=== PATIENT | male | born 1950 | race Caucasian/White ===

== ENCOUNTER 2023-05-30 06:07 | Day surgery (SDC) | payer MEDICARE ==
[2023-05-25 11:31] VITALS: BMI 31.1
[2023-05-25 13:21] LABS: Mean Corpuscular HGB CONC 34.1 g/dL (32.0-36.0); Mean Corpuscular Hemoglobin 32.6 pg (27.0-33.0); Mean Corpuscular Volume 95.7 fl (81.2-95.1); Mean Platelet Volume 9.7 fl (7.4-10.4); Platelet Count 174 10x3/uL (150-450); RBC Distribution Width 13.1 % (11.5-14.5); White Blood Cell (WBC) Count 5.6 10x3/uL (3.5-10.5)
[2023-05-25 14:07] LABS: Anion Gap 14 mmol/L (10-20); BUN (Urea Nitrogen) 17 mg/dL (8.4-25.7); Calc. Creatinine Clearance 125 mL/min (70-130); Calcium 9.4 mg/dL (7.8-10.44); Carbon Dioxide 26 mmol/L (23-31); Chloride 102 mmol/L (98-107); Estimated GFR 95; Glucose 99 mg/dL (83-110); Potassium 3.7 mmol/L (3.5-5.1); Sodium 138 mmol/L (136-145)
[2023-05-30] MEDS ORDERED: Heparin 25,000 units/D5W 500 ML ONE (06:46)
[2023-05-30] MEDS ORDERED: Heparin 10,000 UNITS/ 10 ML VIAL ONE (06:46)
[2023-05-30] MEDS ORDERED: Protamine Sulfate 50 MG/5 ML VIAL ONE (06:46)
[2023-05-30] MEDS ORDERED: fentaNYL 50 mcg/mL 1 mL Vial ONE ×2 (07:17→09:08)
[2023-05-30] MEDS ORDERED: PROPOFOL 200 MG/20 ML VIAL ONE (07:52)
[2023-05-30] MEDS ORDERED: Dexamethasone 20 MG/5 ML VIAL ONE (07:52)
[2023-05-30] MEDS ORDERED: Ondansetron PF 4 MG/2 ML Vial ONE (07:52)
[2023-05-30] MEDS ORDERED: PHENYLEPHRINE-NS 100 MCG/ML 10 ML SYRINGE ONE (07:52)
[2023-05-30] MEDS ORDERED: Lidocaine 1% PF 5 ML VIAL ONE (07:52)
[2023-05-30] MEDS ORDERED: Rocuronium Bromide 10 MG/ML (10ML VIAL) ONE (07:52)
[2023-05-30] MEDS ORDERED: ePHEDrine Sulfate 50 MG/10 ML VIAL ONE (07:52)
[2023-05-30] MEDS ORDERED: SUGAMMADEX SODIUM 200 MG/2 ML VIAL ONE (09:03)
== END 2023-05-30 11:30 | disposition home or self-care (01) ==
LOC: SDC 06:07
PROVIDERS: ATTEND Internal Medicine Cardiovascular Disease
PROC: 02583ZZ Destruction of Conduction Mechanism, Percutaneous Approach (ICD-10-PCS; principal; 2023-05-30)
PROC: 02K83ZZ Map Conduction Mechanism, Percutaneous Approach (ICD-10-PCS; 2023-05-30)
PROC: B246ZZ4 Ultrasonography of Right and Left Heart, Transesophageal (ICD-10-PCS; 2023-05-30)
DX: I48.0 Paroxysmal atrial fibrillation (principal)
CPT/HCPCS: 80048; 85027; 85347 ×2; 85610; 93005; 93312; 93656; C1732; C1759; C1760; C1894 ×5; C2630; J3010; 93010; J1100; J1644; J2405; J2704; J2720